=== PATIENT | male | born 1945 | race Caucasian/White ===

== ENCOUNTER 2017-09-17 16:51 | Emergency (ER) | payer MEDICARE ==
[~2017-09-17] VITALS: Ht 167.6 cm; Wt 73.5 kg
[~2017-09-17 16:51] MED LIST: AMLO5 PO; BCOIRO PO; CEPH500 PO; HYDR10 PO; LANS30EC PO; LEVE500 PO; LISI20 PO; METO50 PO; NITR2TO30 TOP; OXYC15ER PO; PRAV20 PO; SENNP PO
[2017-09-17] MEDS ORDERED: ZESTORETIC 20-121 EA PO (17:35)
[2017-09-17] MEDS ORDERED: Omeprazole20 M1 PO (17:35)
[2017-09-17] MEDS ORDERED: KETO120T TOP (17:35)
[2017-09-17] MEDS ORDERED: SELENIUM SULFI120 ML (17:36)
[2017-09-17 17:50] LABS: BASOPHILS ABSOLUTE AUTO 0.03 K/mm3 (0.00-0.23); BASOPHILS PERCENT AUTO 1 % (0-2); EOSINOPHILS ABSOLUTE AUTO 0.13 K/mm3 (0.00-0.68); EOSINOPHILS PERCENT AUTO 2 % (0-6); Hematocrit 40.1 % (37.0-53.0); Hemoglobin 13.3 g/dL (13.5-17.5); IMMATURE GRAN ABSOLUTE AUTO 0.02 K/mm3 (0.00-0.10); IMMATURE GRAN PERCENT AUTO 0 % (0-1); LYMPHOCYTES ABSOLUTE AUTO 0.69 K/mm3 (0.84-5.20); LYMPHOCYTES PERCENT AUTO 11 % (21-46); MONOCYTES ABSOLUTE AUTO 0.58 K/mm3 (0.16-1.47); MONOCYTES PERCENT AUTO 9 % (4-13); Mean Corpuscular HGB 29.3 pg (26.0-34.0); Mean Corpuscular HGB Conc 33.2 g/dL (31.5-36.5); Mean Corpuscular Volume 88 fL (80-100); Mean Platelet Volume 10.2 fL (9.1-12.4); NEUTROPHILS ABSOLUTE AUTO 4.75 K/mm3 (1.96-9.15); NEUTROPHILS PERCENT AUTO 77 % (41-73); Platelet Count 269 K/mm3 (150-400); RDW Coefficient Variation 12.1 % (11.7-14.2); RDW Standard Deviation 39.2 fL (35.1-46.3); Red Blood Cell Count 4.54 M/mm3 (4.30-5.90)
[2017-09-17 18:03] LABS: International Normalized Ratio 1.07; Prothrombin Time Results 11.1 Sec (9.7-11.5)
[2017-09-17 18:15] LABS: Alanine Aminotransfer (ALT/SGP 29 U/L (12-78); Albumin, Blood 3.4 g/dL (3.4-5.0); Albumin/Globulin Ratio 0.8 (0.8-1.8); Alk Phos 66 U/L (50-136); Anion Gap 7 mmol/L (6-16); Aspartate Aminotrans (AST/SGOT 20 U/L (12-37); Bilirubin, Total 0.6 mg/dL (0.1-1.0); Blood Urea Nitrogen 21 mg/dL (8-24); Bun/Creatinine Ratio 27.3 (12.0-20.0); CO2, Blood 31 mmol/L (21-32); Calcium, Blood 9.2 mg/dL (8.5-10.1); Chloride, Blood 100 mmol/L (98-108); Creatinine, Blood 0.77 mg/dL (0.60-1.20); Globulin, Blood 4.1 g/dL (2.2-4.0); Glomerular Filtration Rate >60 (60-); Glucose, Blood 103 mg/dL (70-99); Potassium, Blood 3.5 mmol/L (3.5-5.5); Sodium, Blood 138 mmol/L (136-145); Total Protein, Blood 7.5 g/dL (6.4-8.2)
== END 2017-09-17 20:00 | disposition left against medical advice (07) ==
LOC: ER 16:51
PROVIDERS: Emergency Medicine
DX: R06.00 Dyspnea, unspecified (principal); J90 Pleural effusion, not elsewhere classified; J98.19 Other pulmonary collapse; Z79.899 Other long term (current) drug therapy; Z79.2 Long term (current) use of antibiotics; Z79.891 Long term (current) use of opiate analgesic; I10 Essential (primary) hypertension; Z87.891 Personal history of nicotine dependence
CPT/HCPCS: 80053; 85025; 85610; 85730; 93005; 93010; 99284

== ENCOUNTER 2017-12-05 14:33 | Emergency (ER) | payer OTHER ==
[~2017-12-05] VITALS: Ht 167.6 cm; Wt 67.6 kg
[~2017-12-05 14:33] MED LIST changes: +KETO120T TOP; +Omeprazole20 M1 PO; +SELENIUM SULFI120 ML; +ZESTORETIC 20-121 EA PO
[2017-12-05] MEDS ORDERED: OXYC5 (15:17)
[2017-12-05] MEDS ORDERED: MORP15ER (15:17)
[2017-12-05] MEDS ORDERED: LISI5 (15:17)
[2017-12-05] MEDS ORDERED: Omeprazole20 M1 (15:18)
[2017-12-05] MEDS ORDERED: LORA.5 (15:18)
[2017-12-05] MEDS ORDERED: Stool Softener100 MG (15:18)
== END 2017-12-05 15:29 | disposition home or self-care (01) ==
LOC: ER 14:33
DX: Z46.82 Encounter for fitting and adjustment of non-vascular catheter (principal); Z87.891 Personal history of nicotine dependence; Z79.899 Other long term (current) drug therapy
CPT/HCPCS: 99282

== ENCOUNTER 2017-12-22 13:49 | Emergency (ER) | payer OTHER ==
[~2017-12-22] VITALS: Ht 167.6 cm; Wt 67.6 kg
[~2017-12-22 13:49] MED LIST changes: +LISI5; +LORA.5; +MORP15ER; +OXYC5; +Omeprazole20 M1; +Stool Softener100 MG
[2017-12-22] MEDS ORDERED: CEPH250A PO (16:37)
[2017-12-22] MEDS ORDERED: ONDA4 (16:37)
[2017-12-22 17:49] LABS: BASOPHILS ABSOLUTE AUTO 0.05 K/mm3 (0.00-0.23); BASOPHILS PERCENT AUTO 1 % (0-2); EOSINOPHILS ABSOLUTE AUTO 0.19 K/mm3 (0.00-0.68); EOSINOPHILS PERCENT AUTO 3 % (0-6); Hematocrit 30.8 % (37.0-53.0); Hemoglobin 9.4 g/dL (13.5-17.5); IMMATURE GRAN ABSOLUTE AUTO 0.02 K/mm3 (0.00-0.10); IMMATURE GRAN PERCENT AUTO 0 % (0-1); LYMPHOCYTES ABSOLUTE AUTO 0.68 K/mm3 (0.84-5.20); LYMPHOCYTES PERCENT AUTO 10 % (21-46); MONOCYTES PERCENT AUTO 14 % (4-13); Mean Corpuscular HGB Conc 30.5 g/dL (31.5-36.5); Mean Corpuscular Volume 85 fL (80-100); Mean Platelet Volume 8.8 fL (9.1-12.4); NEUTROPHILS ABSOLUTE AUTO 4.74 K/mm3 (1.96-9.15); NEUTROPHILS PERCENT AUTO 72 % (41-73); Platelet Count 378 K/mm3 (150-400); RDW Standard Deviation 46.6 fL (35.1-46.3); Red Blood Cell Count 3.62 M/mm3 (4.30-5.90); White Blood Cell Count 6.58 K/mm3 (4.00-11.30)
== END 2017-12-22 18:42 | disposition home or self-care (01) ==
LOC: ER 13:49
PROVIDERS: Physician Assistant
DX: J94.8 Other specified pleural conditions (principal); I10 Essential (primary) hypertension; Z79.899 Other long term (current) drug therapy
CPT/HCPCS: 71046; 85025; 99283-25

== ENCOUNTER 2018-11-16 13:46 | Observation (INO) | payer SELFPAY ==
[~2018-11-16] VITALS: Ht 172.7 cm; Wt 54.4 kg
[~2018-11-16 13:46] MED LIST changes: +CEPH250A PO; +ONDA4
[2018-11-16] MEDS ORDERED: ALPR.5 PO (14:01)
[2018-11-16] MEDS ORDERED: BISA10S PR (14:01)
[2018-11-16] MEDS ORDERED: DEXA2 PO (14:02)
[2018-11-16] MEDS ORDERED: BENADRYL25 MG PO (14:03)
[2018-11-16] MEDS ORDERED: HYOS.125 SL (14:06)
[2018-11-16] MEDS ORDERED: LISI20 PO (14:06)
[2018-11-16] MEDS ORDERED: Ativan0.5 MG PO (14:07)
[2018-11-16] MEDS ORDERED: MORP20L PO (14:10)
[2018-11-16] MEDS ORDERED: MS Contin15 MG PO (14:10)
[2018-11-16] MEDS ORDERED: CVS DISPOSABLE399 ML PR (15:29)
[2018-11-16] MEDS ORDERED: Haloperidol2 MG PO (15:31)
[2018-11-16] MEDS ORDERED: Docusate Sodiu1 EACH PO (15:32)
[2018-11-16] MEDS ORDERED: ONDA8 PO (15:38)
[2018-11-16] MEDS ORDERED: OXYC5 PO (15:38)
--- NOTE | 2018-11-16 15:51 | NUR ---
Upon receiving a referral from BRYANNA Zamudio, I visited patient in ER[facility]. Patient is lying in bed and has eyes closed. He opens his eyes at the sound of his name> aptient attempts to respond but is not able. He answers my questions with growls and nodding of his head. I asked patient if he is holding up ok and he aswers with a groan and an affirmative nod. I ask patient if I could prayer for him and I get the same response. I gladly provide prayer and patient closes his eyes. He opens them slightly at the conclusion of the prayer but then seems unable to answer or respond from that point on. I stay with patient through his visit with the doctor and continue to keep a hand on his shoulder and I reaffirm that he is safe and cared for. I will continue to remain available to patient and family.
--- NOTE | 2018-11-16 17:02 | NUR ---
arrives from e.r. on cart. moans. no relatives. patient unable to answer any questions. med list incomplete. past hx not done. multiple pics taken of sores. when not touched or moved patient quiet. on comfort care.
--- NOTE | 2018-11-16 17:30 | NUR ---
[facility] visit: Asked by RN to sit with this pt who appears to be actively dying and alone. Per chart, he is Judaism. Provided presence of love at bedside. Spoke words of love and care. Pt did not respond. Breaths shallow. Provided audible prayer for a peaceful transition. Said the Lord's Prayer as well. I will remain available to pt and family.
--- NOTE | 2018-11-17 07:24 | NUR ---
SHIFT SUMMARY PT APPEARED COMFORTABLE MOST OF THE NIGHT. ROXINOL GIVEN X1 FOR AIR HUNGER. PT AT 0455. THE HOSPITALIST WAS MADE AWARE, WAS PT'S DAUGHTER MARY BETH ADAMSON. FAMILY DECLINED TO COME IN.
== END 2018-11-17 04:55 ==
LOC: ER 13:46 → MEDS 13:47
PROVIDERS: ADMIT Internal Medicine
DX: C34.90 Malignant neoplasm of unspecified part of unspecified bronchus or lung (principal); I10 Essential (primary) hypertension; Z79.899 Other long term (current) drug therapy; Z86.73 Personal history of transient ischemic attack (TIA), and cerebral infarction without residual deficits; Z87.19 Personal history of other diseases of the digestive system
CPT/HCPCS: 99283; G0378